=== PATIENT | female | born 1950 | race Caucasian/White ===

== ENCOUNTER 2017-12-10 22:16 | Emergency (ER) | payer MEDICARE, SELFPAY ==
[2017-12-10 22:21] VITALS: BP 116/84; PULSE 129; RESP 22; TEMP 36.7; O2SAT 98; BMI 26.5
--- NOTE | 2017-12-10 23:34 | [facility].EDDENT ---
ED Disposition Clinical Impression: Oral lesion Disposition: Home, Self-Care Condition on Discharge: Good Additional Instructions: Please follow up with either one of the ENT specialists listed here (Dr Hoffman or Dr Dennis) within the next 24 hrs. Take the antibiotics prescribed as directed. If not better and unable to see either one of the specialists here, please return to this ER for re-evaluation. Follow up with the specialist is VERY important!!!! Prescriptions: cephALEXin [Keflex 500mg Cap] 500 mg PO Q6H #40 cap Referrals: Derek Hoffman MD [Staff Physician] - Sharda Dennis MD [Consulting Physician] - Time of Disposition: 23:35 - Critical Care Critical Care Time: No Attestation: On 12/10/17, the high probability of a clinically significant, sudden or life threatening deterioration of the following system(s) required my full and direct attention, intervention and personal management. The time I documented below is in addition to time spent performing reported procedures but includes the following listed in this critical care notation. Medical Decision Making - Medical Records Medical records reviewed: Yes: I reviewed the patient's medical records. Vital Signs: 12/10/17 22:21 12/11/17 00:00 Temperature 98.0 F 98.8 F Temperature Source Oral Oral Pulse Rate 80 Pulse Rate [Left Radial] 129 H Respiratory Rate 22 18 Blood Pressure 109/64 Blood Pressure [Right Arm] 116/84 Blood Pressure Mean [Right Arm] 94 Blood Pressure Source Automatic Cuff Blood Pressure Source [Right Arm] Automatic Cuff Blood Pressure Position Sitting Blood Pressure Position [Right Arm] Sitting 02 Sat by Pulse Oximetry 98 Oxygen Delivery Method Room Air Nasal Cannula Oxygen Flow Rate (LPM) 2 - Lab Data Lab Results 12/10/17 23:20: Group A Strep Rapid Negative - Ángel Inquiry Pt receiving controlled substance: No - Reevaluation(s) Time: 23:15 Reevaluation #1: Patient urged to follow-up with ENT as soon as possible. Advised patient that her oral lesion looks suspicious, possibly malignant, she will need to obtain a biopsy within the next 1-2 days. He should not understands the severity of her condition, and potential implications. Dental HPI - General Chief complaint: Dental/Oral Stated complaint: Sore throat, sores in mouth Mode of Arrival: Ambulatory Limitations: No Limitations Description of Symptoms (Recalled from ER Triage Doc. by RN): sore on roof of mouth, pain in throat - History of Present Illness HPI Narrative: The patient is a 67-year-old smoker presented to the emergency room with a oral lesion that she has had for a couple of months, concerned with possible cancer. Patient advised that initially lesion was the size of a blister but it gradually grew, now causing pain in the left ear and left jaw. Patient denies any weight loss, denies any fever, denies any dental pain. Onset (ago): month(s) (2-3) Duration: constant Severity: moderate Relieving factors: nothing Exacerbating factors: nothing Treatment prior to arrival: none - Related Data Previous Rx's Medication Instructions Recorded cephALEXin [Keflex 500mg Cap] 500 mg PO Q6H #40 cap 12/10/17 Allergies Allergy/AdvReac Type Severity Reaction Status Date / Time amoxicillin Allergy Severe I-HIVES Verified 12/10/17 22:35 insect venom Allergy Severe STOPS Verified 12/10/17 22:35 BREATHING Penicillins Allergy Severe I-HIVES Verified 12/10/17 22:35 sumatriptan Allergy Severe DIFFICULTY Verified 12/10/17 22:35 BREATHING leflunomide [From Arava] Allergy Intermediate I-RASH Verified 12/10/17 22:35 clavulanic acid Allergy Unknown Verified 12/10/17 22:35 [CLAVULANIC ACID] clindamycin [CLINDAMYCIN] Allergy Unknown Verified 12/10/17 22:35 indomethacin Allergy Anaphylaxis Verified 12/10/17 22:35 propranolol [From [facility]] AdvReac Severe Swelling Verified 12/10/17 22:35 of the Eye promethazin
--- NOTE | 2017-12-10 23:39 | ED_ITS ---
ED Disposition Clinical Impression: Oral lesion Disposition: Home, Self-Care Condition on Discharge: Good Additional Instructions: Please follow up with either one of the ENT specialists listed here (Dr Hoffman or Dr Dennis) within the next 24 hrs. Take the antibiotics prescribed as directed. If not better and unable to see either one of the specialists here, please return to this ER for re-evaluation. Follow up with the specialist is VERY important!!!! Prescriptions: cephALEXin [Keflex 500mg Cap] 500 mg PO Q6H #40 cap Referrals: Derek Hoffman MD [Staff Physician] - Sharda Dennis MD [Consulting Physician] - Time of Disposition: 23:35 - Critical Care Critical Care Time: No Attestation: On 12/10/17, the high probability of a clinically significant, sudden or life threatening deterioration of the following system(s) required my full and direct attention, intervention and personal management. The time I documented below is in addition to time spent performing reported procedures but includes the following listed in this critical care notation. Medical Decision Making - Medical Records Medical records reviewed: Yes: I reviewed the patient's medical records. Vital Signs: 12/10/17 22:21 12/11/17 00:00 Temperature 98.0 F 98.8 F Temperature Source Oral Oral Pulse Rate 80 Pulse Rate [Left Radial] 129 H Respiratory Rate 22 18 Blood Pressure 109/64 Blood Pressure [Right Arm] 116/84 Blood Pressure Mean [Right Arm] 94 Blood Pressure Source Automatic Cuff Blood Pressure Source [Right Arm] Automatic Cuff Blood Pressure Position Sitting Blood Pressure Position [Right Arm] Sitting 02 Sat by Pulse Oximetry 98 Oxygen Delivery Method Room Air Nasal Cannula Oxygen Flow Rate (LPM) 2 - Lab Data Lab Results 12/10/17 23:20: Group A Strep Rapid Negative - Ángel Inquiry Pt receiving controlled substance: No - Reevaluation(s) Time: 23:15 Reevaluation #1: Patient urged to follow-up with ENT as soon as possible. Advised patient that her oral lesion looks suspicious, possibly malignant, she will need to obtain a biopsy within the next 1-2 days. He should not understands the severity of her condition, and potential implications. Dental HPI - General Chief complaint: Dental/Oral Stated complaint: Sore throat, sores in mouth Mode of Arrival: Ambulatory Limitations: No Limitations Description of Symptoms (Recalled from ER Triage Doc. by RN): sore on roof of mouth, pain in throat - History of Present Illness HPI Narrative: The patient is a 67-year-old smoker presented to the emergency room with a oral lesion that she has had for a couple of months, concerned with possible cancer. Patient advised that initially lesion was the size of a blister but it gradually grew, now causing pain in the left ear and left jaw. Patient denies any weight loss, denies any fever, denies any dental pain. Onset (ago): month(s) (2-3) Duration: constant Severity: moderate Relieving factors: nothing Exacerbating factors: nothing Treatment prior to arrival: none - Related Data Previous Rx's Medication Instructions Recorded cephALEXin [Keflex 500mg Cap] 500 mg PO Q6H #40 cap 12/10/17 Allergies Allergy/AdvReac Type Severity Reaction Status Date / Time amoxicillin Allergy Severe I-HIVES Verified 12/10
[2017-12-10 23:57] LABS: Strep Scrn Group A (Rapid) Negative (Negative)
[2017-12-11] VITALS: BP 109/64; PULSE 80; RESP 18; TEMP 37.1; O2SAT 95
== END 2017-12-11 00:03 | disposition home or self-care (01) ==
PROVIDERS: Emergency Provider Emergency Medicine; Family Provider Emergency Medicine
DX: K13.70 Unspecified lesions of oral mucosa (principal); Z88.0 Allergy status to penicillin; Z88.1 Allergy status to other antibiotic agents; Z88.8 Allergy status to other drugs, medicaments and biological substances; F17.210 Nicotine dependence, cigarettes, uncomplicated
CPT/HCPCS: 87430; 99281

== ENCOUNTER → 2018-02-05 15:46 | Outpatient (CLI) | payer MEDICARE, SELFPAY ==
[2018-02-05 16:10] LABS: Basophils % 0.8 % (0.1-2.0); Eosinophils % 0.2 % (0.1-12.0); Hematocrit 39.6 % (37.0-47.0); Hemoglobin 12.4 g/dL (12.2-16.2); Lymphocytes # 1.4 K/mm3 (0.7-4.5); Lymphocytes % 31.6 K/mm3 (10-50); Mean Corpuscular HGB Conc 31.3 g/dL (31.8-35.4); Mean Corpuscular Hemoglobin 26.6 pg (27.0-31.2); Mean Corpuscular Volume 84.9 fl (81-99); Monocytes # 0.4 K/mm3 (0.1-1.0); Monocytes % 8.6 % (1.7-9.3); Neutrophils # 2.5 K/mm3 (1.8-7.8); Neutrophils % 58.8 % (37.0-80.0); Platelet Count 209 K/mm3 (142-424); Red Blood Count 4.67 M/mm3 (4.20-5.40); Red Cell Distribution Width 14.2 % (11.5-17.5); White Blood Count 4.3 K/mm3 (4.8-10.8)
--- NOTE | 2018-02-05 16:17 | XR_ITS ---
XR chest 2V COMPARISON: PA and lateral chest 09/15/2017 HISTORY: Known COPD TECHNIQUE: PA and lateral chest FINDINGS: The lung alberto are well expanded and appear clear of infiltrate. Again noted is a prominent aortic tortuosity but there is no cardiomegaly. The vascularity is normal and is no pleural fluid. IMPRESSION: Nonacute chest findings
[2018-02-05 16:37] LABS: Alanine Aminotransferase 20 U/L (12-78); Albumin Level 3.8 gm/dL (3.4-5.0); Albumin/Globulin Ratio 0.9 (1.1-1.8); Alkaline Phosphatase 108 U/L (46-116); Anion Gap 15.7 mEq/L (5-15); Aspartate Amino Transferase 22 U/L (15-37); Bilirubin,Total 0.3 mg/dL (0.2-1.0); Blood Urea Nitrogen 6 mg/dL (7-18); Calcium 9.1 mg/dL (8.5-10.1); Carbon Dioxide 24 mmol/L (21.0-32.0); Chloride 106 mmol/L (98-107); Creatinine,Serum 0.79 mg/dL (0.55-1.02); Estimated Glomerular Filt Rate 72 ml/min (>60); GFR (African American) 88 ML/MIN (>60); Globulin 4.1 gm/dl (1.3-3.2); Glucose 100 mg/dL (74-106); Potassium 4.7 mmoL/L (3.5-5.1); Sodium 141 mmol/L (136-145); Total Protein,Serum 7.9 gm/dL (6.4-8.2)
== END ==
PROVIDERS: PCP Family Medicine; Visit Provider Otolaryngology
DX: Z01.818 Encounter for other preprocedural examination (principal); K12.30 Oral mucositis (ulcerative), unspecified
CPT/HCPCS: 36415; 71046; 80053; 85025; 93005